=== PATIENT | female | born 1945 | race African-American/Black ===

== ENCOUNTER → 2023-05-08 | Outpatient (CLI) | payer MEDICARE | END | disposition home or self-care (01) | LOC: RADMN 09:54 | PROVIDERS: ATTEND Ophthalmology | DX: I67.82 Cerebral ischemia (principal); I63.81 Other cerebral infarction due to occlusion or stenosis of small artery; H35.372 Puckering of macula, left eye | CPT/HCPCS: 70540; 70551 ==